=== PATIENT | female | born 1960 | race Caucasian/White ===

== ENCOUNTER 2017-03-09 15:29 | Emergency (ER) | payer BC ==
[~2017-03-09] VITALS: Ht 167.6 cm; Wt 65.8 kg
--- NOTE | 2017-03-09 15:35 | NUR ---
Placed in room 6 .
[2017-03-09 15:42] VITALS: BP_SYST 138
--- NOTE | 2017-03-09 15:44 | NUR ---
ER AMY ashford at bedside examining patient.
--- NOTE | 2017-03-09 15:44 | NUR ---
PATIENT PLACE IN ROOM 6 HERE FOR RIGHT ANKLE SWELLING AND PAIN. pT ARRIVED 2 DAYS AGO ON 23 HOUR FLIGHT FROM [place]. ENDORSED CARE TO SEL[facility] [place].
[2017-03-09] MEDS ORDERED: IBUPROFEN 600 MG TABLET PO ONE (15:45)
[2017-03-09] MEDS ORDERED: ACETAMINOPHEN 325 MG TABLET PO ONE (15:45)
--- NOTE | 2017-03-09 15:49 | NUR ---
pt c/o right ankle swelling since yesterday, [place] flight on Tuesday. pedal pulse present,skin warm dry intact.
[2017-03-09 16:00] LABS: BASOPHILS % (AUTO) 0.5 % (0.0-2.0); EOSINOPHILS # (AUTO) 0.3 K/uL (0.0-0.4); HEMATOCRIT 39.7 % (36-48); HEMOGLOBIN 13.6 g/dL (12.0-16.0); LYMPHOCYTES # (AUTO) 2.1 K/uL (1.0-5.5); LYMPHOCYTES % (AUTO) 23.1 % (20.5-51.5); MEAN CORPUSCULAR HEMOGLOBIN 31 pg (27-31); MEAN CORPUSCULAR HGB CONC 34 % (32-36); MEAN CORPUSCULAR VOLUME 90 fL (79.0-98.0); MONOCYTES # (AUTO) 0.8 K/uL (0.0-1.0); MONOCYTES % (AUTO) 8.8 % (1.7-9.3); NEUTROPHILS % (AUTO) 64.6 % (40.0-70.0); PLATELET COUNT (AUTO) 224 K/uL (130-430); RED BLOOD CELL COUNT(AUTO) 4.41 MIL/uL (4.2-6.2); WHITE BLOOD COUNT (AUTO) 9.2 K/uL (4.8-10.8)
[2017-03-09 16:15] LABS: CALCIUM 8.7 mg/dL (8.4-11.0); CREATININE 0.87 mg/dL (0.55-1.30); POTASSIUM 3.9 mmol/L (3.5-5.1)
[2017-03-09 16:20] LABS: ALBUMIN 3.6 g/dL (3.4-4.8); TOTAL BILIRUBIN 0.3 mg/dL (0.0-1.0)
[2017-03-09 16:48] LABS: PROTHROMBIN TIME 11.1 SECS (9.5-12.5)
--- NOTE | 2017-03-09 17:16 | NUR ---
Patient given written and verbal discharge instructions and verbalizes understanding. ER MD discussed with patient the results and treatment provided. Patient in stable condition. ID arm band removed. Rx of motrin given. Patient educated on pain management and to follow up with PMD. Pain Scale 0 . Opportunity for questions provided and answered.
--- NOTE | 2017-03-09 17:16 | NUR ---
ac-wrap placed to right ankle,pt refused crutches
[2017-03-09 17:18] VITALS: BP_SYST 130
== END 2017-03-09 17:18 | disposition home or self-care (01) ==
LOC: SED 15:29
DX: M25.571 Pain in right ankle and joints of right foot (principal); R20.0 Anesthesia of skin; Z72.0 Tobacco use
CPT/HCPCS: 36415; 80053; 85025; 85610-TC; 93971; 99285